=== PATIENT | male | born 1970 | race Two or more races ===

== ENCOUNTER 2019-11-22 17:44 | Inpatient (IN) | payer MEDICAID ==
[~2019-11-22] VITALS: Ht 182.9 cm; Wt 133.8 kg
[2019-11-22 19:20] LABS: CARBON DIOXIDE 26 mmol/L (22-29); CHLORIDE 99 mmol/L (98-107); POTASSIUM 3.4 mmol/L (3.5-5.1); SODIUM SERUM 141 mmol/L (136-145)
[2019-11-22 19:21] LABS: ANION GAP 16 mmol/L (8-16); CALCIUM, TOTAL 9.3 mg/dL (8.8-10.5); CREATININE 0.94 mg/dL (0.60-1.30); GLOMERULAR FILTR. RATE CALC > 60 mL/min (>60); GLUCOSE,RANDOM 185 mg/dL (70-110); UREA NITROGEN, BLOOD 9 mg/dL (7-18)
[2019-11-22 19:23] LABS: BASOPHILS % (AUTO) 0.4 % (0.0-2.0); EOSINOPHILS % (AUTO) 0.2 % (1.0-6.0); HEMATOCRIT 46.1 % (41-53); HEMOGLOBIN 16.4 g/dL (13.5-17.5); LYMPHOCYTES # (AUTO) 1.6 K/uL (1.0-4.8); LYMPHOCYTES % (AUTO) 15.6 % (22.0-44.0); MEAN CORPUSCULAR HEMOGLOBIN 32.9 pg (26.0-34.0); MEAN CORPUSCULAR HGB CONC 35.5 G/dL (31.0-37.0); MEAN CORPUSCULAR VOLUME 93 fL (80-100); MONOCYTES # (AUTO) 1.3 K/uL (0.1-1.0); MONOCYTES % (AUTO) 12.9 % (2.0-9.0); NEUTROPHILS # (AUTO) 7.1 K/uL (1.8-7.7); NEUTROPHILS % (AUTO) 70.9 % (40.0-70.0); PLATELET COUNT (AUTO) 315 K/uL (150-450); RED BLOOD CELL COUNT(AUTO) 4.98 MIL/uL (4.50-5.90); RED CELL DISTRIBUTION WIDTH 12.5 % (11.5-14.5)
[2019-11-22 19:26] LABS: ALANINE AMINOTRANSFERASE 35 U/L (12-78); ALBUMIN 4.6 g/dL (3.4-5.0); ALKALINE PHOSPHATASE 47 U/L (46-116); ASPARTATE AMINOTRANSFERASE 25 U/L (15-37); BILIRUBIN,TOTAL 0.9 mg/dL (0.1-1.0)
[2019-11-22 22:15] VITALS: BP 150/97
[2019-11-22] MEDS ORDERED: GuaiFENesin/D-METHORPHAN [SUGAR-FREE] 200-20MG/10 ML SYRUP UDCUP PO PRN (22:15)
[2019-11-22] MEDS ORDERED: DOCUSATE SODIUM 100 MG CAPSULE PO PRN (22:15)
[2019-11-22] MEDS ORDERED: MAG HYDROX/AL HYDROX/SIMETH ES 30 ML SUSPENSION UDCUP PO PRN (22:15)
[2019-11-22] MEDS ORDERED: ONDANSETRON HCL 4 MG TABLET PO PRN (22:15)
[2019-11-22] MEDS ORDERED: PETROLATUM,WHITE 28 GM JELLY TP PRN (22:15)
[2019-11-22] MEDS ORDERED: MAGNESIUM HYDROXIDE SUSPENSION 30 ML UDCUP PO PRN (22:15)
[2019-11-22] MEDS ORDERED: ALBUTEROL SULFATE HFA 90 MCG/PUFF 8 GM INHALER IH PRN (22:15)
[2019-11-22] MEDS ORDERED: ACETAMINOPHEN 325 MG TABLET PO PRN (22:15)
[2019-11-22] MEDS ORDERED: NICOTINE 14 MG/24 HOUR PATCH TD PRN (22:15)
[2019-11-22] MEDS ORDERED: IBUPROFEN 400 MG TABLET PO PRN (22:15)
[2019-11-22] MEDS ORDERED: LOPERAMIDE HCL 2 MG CAPSULE PO PRN (22:15)
[2019-11-22] MEDS ORDERED: POTASSIUM CHLORIDE 20 MEQ ER TABLET PO ONE (22:15)
[2019-11-22] MEDS ORDERED: CloNIDine HCL 0.1 MG TABLET PO PRN (22:15)
[2019-11-22] MEDS ORDERED: DEXTROSE 50%-WATER 25 GM/50 ML SYRINGE IVP PRN (22:30)
[2019-11-23] VITALS: BP 140/89
[2019-11-23] MEDS: ZOLPIDEM TARTRATE 10 MG TABLET PO PRN ×2 (01:10→21:00)
[2019-11-23] MEDS: HALOPERIDOL 5 MG TABLET PO PRN (01:10)
[2019-11-23] MEDS: LORazepam 2 MG TABLET PO PRN (01:11)
[2019-11-23 02:32] VITALS: BP 101/69
[2019-11-23 05:35] LABS: GLUCOMETER DEV NAME(LOC) 3E.I 2; GLUCOSE,POINT OF CARE 148 MG/DL (70-110)
[2019-11-23] MEDS: INSULIN LISPRO 100 UNITS/ML SQ PRN ×3 (06:54→21:18)
[2019-11-23 07:21] LABS: BASOPHILS % (AUTO) 0.3 % (0.0-2.0); EOSINOPHILS % (AUTO) 1.1 % (1.0-6.0); HEMATOCRIT 45.8 % (41-53); LYMPHOCYTES # (AUTO) 2.9 K/uL (1.0-4.8); LYMPHOCYTES % (AUTO) 28.3 % (22.0-44.0); MEAN CORPUSCULAR HEMOGLOBIN 32.6 pg (26.0-34.0); MEAN CORPUSCULAR VOLUME 93 fL (80-100); MONOCYTES # (AUTO) 1.5 K/uL (0.1-1.0); MONOCYTES % (AUTO) 14.5 % (2.0-9.0); NEUTROPHILS # (AUTO) 5.8 K/uL (1.8-7.7); NEUTROPHILS % (AUTO) 55.8 % (40.0-70.0); PLATELET COUNT (AUTO) 297 K/uL (150-450); RED BLOOD CELL COUNT(AUTO) 4.92 MIL/uL (4.50-5.90); RED CELL DISTRIBUTION WIDTH 12.6 % (11.5-14.5)
[2019-11-23 07:44] LABS: HEMOGLOBIN A1C 6.1 % (3.8-5.6)
[2019-11-23 08:00] LABS: ALANINE AMINOTRANSFERASE 35 U/L (12-78); ALBUMIN 3.9 g/dL (3.4-5.0); ALKALINE PHOSPHATASE 36 U/L (46-116); ANION GAP 12 mmol/L (8-16); ASPARTATE AMINOTRANSFERASE 23 U/L (15-37); CARBON DIOXIDE 27 mmol/L (22-29); CHLORIDE 103 mmol/L (98-107); CHOL/HDL RATIO 4.9 (4.2-7.3); CHOLESTEROL 122 mg/dL (131-200); CREATININE 0.76 mg/dL (0.60-1.30); GLOMERULAR FILTR. RATE CALC > 60 mL/min (>60); GLUCOSE,RANDOM 157 mg/dL (70-110); HDL CHOLESTEROL 25 mg/dL (40-60); LDL CHOL (CALC.) 72 mg/dL (0-130); POTASSIUM 3.2 mmol/L (3.5-5.1); SODIUM SERUM 142 mmol/L (136-145); TOTAL PROTEIN, SERUM 7.2 g/dL (6.4-8.2); TRIGLYCERIDES 124 mg/dL (15-150); UREA NITROGEN, BLOOD 12 mg/dL (7-18)
[2019-11-23 08:33] VITALS: BP 142/92
[2019-11-23 08:38] LABS: THYROID STIMULATING HORMONE 1.04 uIU/mL (0.36-3.74)
[2019-11-23 11:01] LABS: GLUCOMETER DEV NAME(LOC) 3E.I 2; GLUCOSE,POINT OF CARE 200 MG/DL (70-110)
[2019-11-23] MEDS: OLANZapine 5 MG TABLET PO SCH ×2 (12:13→20:20)
[2019-11-23] MEDS ORDERED: POTASSIUM CHLORIDE 10% 40 MEQ/30 ML LIQUID UDCUP PO ONE (15:45)
[2019-11-23 16:40] VITALS: BP 125/68
[2019-11-23 21:29] LABS: GLUCOMETER DEV NAME(LOC) 3E.I 2; GLUCOSE,POINT OF CARE 252 MG/DL (70-110)
[2019-11-24 05:42] LABS: GLUCOMETER DEV NAME(LOC) 3E.I 2; GLUCOSE,POINT OF CARE 147 MG/DL (70-110)
[2019-11-24] MEDS: INSULIN LISPRO 100 UNITS/ML SQ PRN ×4 (06:40→21:11)
[2019-11-24] MEDS: OLANZapine 5 MG TABLET PO SCH ×2 (08:08→20:08)
[2019-11-24 08:53] VITALS: BP 163/96
[2019-11-24 11:03] LABS: GLUCOMETER DEV NAME(LOC) 3E.I 2; GLUCOSE,POINT OF CARE 277 MG/DL (70-110)
[2019-11-24] MEDS: MetFORMIN HCL 500 MG TABLET PO SCH (17:07)
[2019-11-24 17:11] VITALS: BP 153/100
[2019-11-24 17:38] LABS: GLUCOMETER DEV NAME(LOC) 3E.I 2; GLUCOSE,POINT OF CARE 215 MG/DL (70-110)
[2019-11-24] MEDS: ZOLPIDEM TARTRATE 10 MG TABLET PO PRN (21:14)
[2019-11-24 21:26] LABS: GLUCOMETER DEV NAME(LOC) 3E.I 2; GLUCOSE,POINT OF CARE 168 MG/DL (70-110)
[2019-11-25] MEDS: HALOPERIDOL 5 MG TABLET PO PRN (02:37)
[2019-11-25 03:50] VITALS: BP 155/98
[2019-11-25 05:59] LABS: GLUCOMETER DEV NAME(LOC) 3E.I 2; GLUCOSE,POINT OF CARE 190 MG/DL (70-110)
[2019-11-25] MEDS: MetFORMIN HCL 500 MG TABLET PO SCH ×2 (06:47→16:30)
[2019-11-25] MEDS: INSULIN LISPRO 100 UNITS/ML SQ PRN ×4 (06:50→20:50)
[2019-11-25] MEDS: OLANZapine 5 MG TABLET PO SCH ×2 (08:55→20:29)
[2019-11-25 09:57] VITALS: BP 150/92
[2019-11-25 10:38] LABS: GLUCOMETER DEV NAME(LOC) 3E.I 2; GLUCOSE,POINT OF CARE 232 MG/DL (70-110)
[2019-11-25] MEDS: LORazepam 2 MG TABLET PO PRN (14:33)
[2019-11-25 17:00] VITALS: BP 147/95
[2019-11-25] MEDS: ZOLPIDEM TARTRATE 10 MG TABLET PO PRN (23:04)
[2019-11-26 05:34] LABS: GLUCOMETER DEV NAME(LOC) 3E.I 2; GLUCOSE,POINT OF CARE 165 MG/DL (70-110)
[2019-11-26] MEDS: MetFORMIN HCL 500 MG TABLET PO SCH (06:44)
[2019-11-26] MEDS: INSULIN LISPRO 100 UNITS/ML SQ PRN ×2 (06:45→12:22)
[2019-11-26] MEDS: OLANZapine 5 MG TABLET PO SCH (08:16)
[2019-11-26 08:30] VITALS: BP 152/83
[2019-11-26] MEDS ORDERED: FLUTICASONE PROPIONATE 50 MCG/SPRAY 16 GM NASAL SPRAY NASAL PRN (10:00)
[2019-11-26 11:21] LABS: GLUCOMETER DEV NAME(LOC) 3E.I 2; GLUCOSE,POINT OF CARE 209 MG/DL (70-110)
[2019-11-26] MEDS ORDERED: OLAN5TAB27 PO (13:30)
[2019-11-26] MEDS ORDERED: METF-960 PO (14:38)
[2019-11-26] MEDS ORDERED: HYDR28.35 TP (14:38)
[2019-11-26] MEDS ORDERED: HYDROCORTISONE 2.5% 30 GM CREAM TP SCH (17:00)
== END 2019-11-26 16:30 | disposition home or self-care (01) | DRG 885 ==
LOC: EMS 17:48 → 3EI 20:51
DX: F31.5 Bipolar disorder, current episode depressed, severe, with psychotic features (principal); E11.9 Type 2 diabetes mellitus without complications; I10 Essential (primary) hypertension; E87.6 Hypokalemia; F10.10 Alcohol abuse, uncomplicated; Z87.891 Personal history of nicotine dependence; Y90.9 Presence of alcohol in blood, level not specified
CPT/HCPCS: 70450; 83036; 84132; 84443; G0480

== ENCOUNTER 2020-01-09 20:02 | Emergency (ER) | payer MEDICAID ==
[~2020-01-09] VITALS: Ht 182.9 cm; Wt 154.6 kg
[~2020-01-09 20:02] MED LIST: HYDR28.35 TP; METF-960 PO; OLAN5TAB27 PO
[2020-01-09 21:08] LABS: BASOPHILS % (AUTO) 0.7 % (0.0-2.0); EOSINOPHILS % (AUTO) 5.1 % (1.0-6.0); HEMATOCRIT 43.6 % (41-53); HEMOGLOBIN 14.9 g/dL (13.5-17.5); LYMPHOCYTES # (AUTO) 2.8 K/uL (1.0-4.8); LYMPHOCYTES % (AUTO) 29.2 % (22.0-44.0); MEAN CORPUSCULAR HEMOGLOBIN 32.9 pg (26.0-34.0); MEAN CORPUSCULAR HGB CONC 34.2 G/dL (31.0-37.0); MEAN CORPUSCULAR VOLUME 96 fL (80-100); MONOCYTES # (AUTO) 0.8 K/uL (0.1-1.0); MONOCYTES % (AUTO) 8.5 % (2.0-9.0); NEUTROPHILS # (AUTO) 5.4 K/uL (1.8-7.7); NEUTROPHILS % (AUTO) 56.5 % (40.0-70.0); PLATELET COUNT (AUTO) 305 K/uL (150-450); RED BLOOD CELL COUNT(AUTO) 4.54 MIL/uL (4.50-5.90); RED CELL DISTRIBUTION WIDTH 13.1 % (11.5-14.5)
[2020-01-09 21:18] LABS: ANION GAP 8 mmol/L (8-16); CALCIUM, TOTAL 8.4 mg/dL (8.8-10.5); CARBON DIOXIDE 28 mmol/L (22-29); CHLORIDE 104 mmol/L (98-107); CREATININE 0.69 mg/dL (0.60-1.30); GLOMERULAR FILTR. RATE CALC > 60 mL/min (>60); GLUCOSE,RANDOM 179 mg/dL (70-110); SODIUM SERUM 140 mmol/L (136-145); UREA NITROGEN, BLOOD 9 mg/dL (7-18)
[2020-01-09 21:24] LABS: ALANINE AMINOTRANSFERASE 19 U/L (12-78); ALBUMIN 3.6 g/dL (3.4-5.0); ALKALINE PHOSPHATASE 38 U/L (46-116); ASPARTATE AMINOTRANSFERASE 13 U/L (15-37); BILIRUBIN,TOTAL 0.5 mg/dL (0.1-1.0); TOTAL PROTEIN, SERUM 7.1 g/dL (6.4-8.2)
[2020-01-09] MEDS ORDERED: LORazepam 1 MG TABLET PO ONE (21:45)
[2020-01-09] MEDS ORDERED: HALOPERIDOL 5 MG TABLET PO ONE (21:45)
[2020-01-09 22:20] LABS: AMPHET/METH SCREEN,URINE NEGATIVE (NEGATIVE); BARBITURATE SCREEN, URINE NEGATIVE (NEGATIVE); BENZODIAZEPINES SCREEN,URINE NEGATIVE (NEGATIVE); CANNABINOID SCREEN,URINE POSITIVE (NEGATIVE); COCAINE SCREEN,URINE NEGATIVE (NEGATIVE); METHADONE SCREEN, URINE NEGATIVE (NEGATIVE); OPIATE SCREEN,URINE NEGATIVE (NEGATIVE)
[2020-01-09 22:21] LABS: PHENCYCLIDINE SCREEN,URINE NEGATIVE (NEGATIVE)
[2020-01-09 22:45] VITALS: BP 129/78
== END 2020-01-09 23:00 | disposition home or self-care (01) ==
LOC: EMS 20:02 → EDBD 20:02 → EMS 23:00
DX: F31.9 Bipolar disorder, unspecified (principal); E11.9 Type 2 diabetes mellitus without complications; I10 Essential (primary) hypertension; F17.210 Nicotine dependence, cigarettes, uncomplicated; F12.90 Cannabis use, unspecified, uncomplicated; Z79.84 Long term (current) use of oral hypoglycemic drugs
CPT/HCPCS: 36415; 80053; 80307; 85025; 99284; G0480

== ENCOUNTER 2020-09-26 22:40 | Emergency (ER) | payer MEDICAID ==
[~2020-09-26] VITALS: Ht 182.9 cm; Wt 163.6 kg
[2020-09-26] MEDS ORDERED: PARO-38 PO (22:51)
[2020-09-26] MEDS ORDERED: LOSA50TA37 PO (22:51)
[2020-09-26 23:59] LABS: BASOPHILS % (AUTO) 0.7 % (0.0-2.0); EOSINOPHILS % (AUTO) 0.3 % (1.0-6.0); HEMOGLOBIN 17.4 g/dL (13.5-17.5); LYMPHOCYTES # (AUTO) 2.4 K/uL (1.0-4.8); LYMPHOCYTES % (AUTO) 15.8 % (22.0-44.0); MEAN CORPUSCULAR HEMOGLOBIN 33.4 pg (26.0-34.0); MEAN CORPUSCULAR HGB CONC 34.8 G/dL (31.0-37.0); MEAN CORPUSCULAR VOLUME 96 fL (80-100); MONOCYTES # (AUTO) 1.5 K/uL (0.1-1.0); NEUTROPHILS # (AUTO) 11.1 K/uL (1.8-7.7); NEUTROPHILS % (AUTO) 73.2 % (40.0-70.0); PLATELET COUNT (AUTO) 339 K/uL (150-450); RED CELL DISTRIBUTION WIDTH 12.8 % (11.5-14.5)
[2020-09-27 00:12] LABS: ANION GAP 18 mmol/L (8-16); CALCIUM, TOTAL 8.8 mg/dL (8.8-10.5); CARBON DIOXIDE 20 mmol/L (22-29); CHLORIDE 98 mmol/L (98-107); CREATININE 0.88 mg/dL (0.60-1.30); GLOMERULAR FILTR. RATE CALC > 60 mL/min (>60); GLUCOSE,RANDOM 263 mg/dL (70-110); POTASSIUM 3.5 mmol/L (3.5-5.1); SODIUM SERUM 136 mmol/L (136-145); UREA NITROGEN, BLOOD 10 mg/dL (7-18)
[2020-09-27 00:18] LABS: ALANINE AMINOTRANSFERASE 45 U/L (12-78); ALBUMIN 4.1 g/dL (3.4-5.0); ALKALINE PHOSPHATASE 56 U/L (46-116); ASPARTATE AMINOTRANSFERASE 19 U/L (15-37); BILIRUBIN,TOTAL 0.8 mg/dL (0.1-1.0); TOTAL PROTEIN, SERUM 8.2 g/dL (6.4-8.2)
[2020-09-27] MEDS ORDERED: LORazepam 1 MG TABLET PO ONE (00:45)
[2020-09-27] MEDS ORDERED: OLANZapine 5 MG TABLET PO ONE ×2 (00:45)
[2020-09-27 01:45] VITALS: BP 140/95
== END 2020-09-27 02:19 | disposition home or self-care (01) ==
LOC: EMS 22:40
DX: F31.9 Bipolar disorder, unspecified (principal)
CPT/HCPCS: 36415; 80053; 85025; 99284; G0480

== ENCOUNTER 2020-09-30 11:59 | Inpatient (IN) | payer MEDICAID ==
[~2020-09-30] VITALS: Ht 185.4 cm; Wt 142.0 kg
[~2020-09-30 11:59] MED LIST changes: +LOSA50TA37 PO; +PARO-38 PO
[2020-09-30] MEDS ORDERED: INSULIN REGULAR, HUMAN 100 UNITS/ML IVP ONE (13:00)
[2020-09-30] MEDS ORDERED: SODIUM CHLORIDE 0.9% 1,000 ML IV ONE (13:00)
[2020-09-30 13:16] LABS: BASOPHILS % (AUTO) 0.4 % (0.0-2.0); EOSINOPHILS % (AUTO) 0.1 % (1.0-6.0); HEMATOCRIT 51.1 % (41-53); HEMOGLOBIN 17.6 g/dL (13.5-17.5); LYMPHOCYTES # (AUTO) 2.1 K/uL (1.0-4.8); LYMPHOCYTES % (AUTO) 12.5 % (22.0-44.0); MEAN CORPUSCULAR HEMOGLOBIN 33.1 pg (26.0-34.0); MEAN CORPUSCULAR HGB CONC 34.3 G/dL (31.0-37.0); MEAN CORPUSCULAR VOLUME 96 fL (80-100); MONOCYTES # (AUTO) 2.3 K/uL (0.1-1.0); MONOCYTES % (AUTO) 13.8 % (2.0-9.0); NEUTROPHILS # (AUTO) 12.1 K/uL (1.8-7.7); NEUTROPHILS % (AUTO) 73.2 % (40.0-70.0); PLATELET COUNT (AUTO) 373 K/uL (150-450); RED CELL DISTRIBUTION WIDTH 13.1 % (11.5-14.5)
[2020-09-30] MEDS ORDERED: LORazepam 2 MG/ML VIAL IVP ONE (13:30)
[2020-09-30] MEDS ORDERED: LORazepam 2 MG/ML VIAL ONE (13:30)
[2020-09-30 13:31] LABS: ANION GAP 19 mmol/L (8-16); CALCIUM, TOTAL 9.5 mg/dL (8.8-10.5); CARBON DIOXIDE 19 mmol/L (22-29); CHLORIDE 99 mmol/L (98-107); CREATININE 0.96 mg/dL (0.60-1.30); GLOMERULAR FILTR. RATE CALC > 60 mL/min (>60); GLUCOSE,RANDOM 395 mg/dL (70-110); POTASSIUM 3.4 mmol/L (3.5-5.1); SODIUM SERUM 137 mmol/L (136-145); UREA NITROGEN, BLOOD 13 mg/dL (7-18)
[2020-09-30 13:37] LABS: ALANINE AMINOTRANSFERASE 39 U/L (12-78); ALBUMIN 4.1 g/dL (3.4-5.0); ALKALINE PHOSPHATASE 58 U/L (46-116); ASPARTATE AMINOTRANSFERASE 26 U/L (15-37); TOTAL PROTEIN, SERUM 7.9 g/dL (6.4-8.2)
[2020-09-30] MEDS ORDERED: SODIUM CHLORIDE 0.9% 500 ML IV ONE (14:15)
[2020-09-30] MEDS ORDERED: POTASSIUM CHLORIDE 20 MEQ ER TABLET PO ONE (14:30)
[2020-09-30 14:32] LABS: COVID AG,FIA SOURCE NASOPHARYNGEAL
[2020-09-30 14:34] LABS: GLUCOSE,POINT OF CARE 274 MG/DL (70-110)
[2020-09-30 16:30] LABS: GLUCOSE,POINT OF CARE 266 MG/DL (70-110)
[2020-09-30] MEDS ORDERED: MONT10TA32 PO (16:51)
[2020-09-30] MEDS ORDERED: INSU100I26 SQ (16:51)
[2020-09-30] MEDS ORDERED: GLIP10TA9 PO (16:51)
[2020-09-30] MEDS ORDERED: ATOR20TA65 PO (16:51)
[2020-09-30 17:06] LABS: APPEARANCE,URINE CLEAR (CLEAR); GLUCOSE, URINE (UA) >=1000 mg/dL (NEGATIVE); KETONES,URINE >=80 mg/dL (NEGATIVE); LEUKOCYTE ESTERASE ,URINE NEGATIVE (NEGATIVE); NITRATE,URINE NEGATIVE (NEGATIVE); OCCULT BLOOD,URINE TRACE (NEGATIVE); PH,URINE 5.5 (5.0-8.0); PROTEIN,URINE TRACE (NEGATIVE); UROBILINOGEN,URINE 0.2 mg/dL (<=1.0)
[2020-09-30 17:12] LABS: AMPHET/METH SCREEN,URINE NEGATIVE (NEGATIVE); BARBITURATE SCREEN, URINE NEGATIVE (NEGATIVE); BENZODIAZEPINES SCREEN,URINE NEGATIVE (NEGATIVE); CANNABINOID SCREEN,URINE POSITIVE (NEGATIVE); COCAINE SCREEN,URINE NEGATIVE (NEGATIVE); METHADONE SCREEN, URINE NEGATIVE (NEGATIVE); OPIATE SCREEN,URINE NEGATIVE (NEGATIVE)
[2020-09-30 17:13] LABS: PHENCYCLIDINE SCREEN,URINE NEGATIVE (NEGATIVE)
[2020-09-30 17:20] LABS: BILIRUBIN,URINE PRELIM. POSITIVE (NEGATIVE)
[2020-09-30 17:28] LABS: BACTERIA,URINE None Seen /HPF (None Seen); RBC,URINE 0-2 /HPF (0-2); SQUAMOUS EPITHELIAL CELL,UR Rare /LPF (None Seen); WBC,URINE 0-2 /HPF (0-5)
[2020-09-30 19:08] VITALS: BP 146/86
[2020-09-30] MEDS ORDERED: DEXTROSE 50%-WATER 25 GM/50 ML SYRINGE IVP PRN (19:30)
[2020-09-30] MEDS ORDERED: INFLUENZA VIRUS VACCINE QVS 2020-21 (6MO+)/PF 60 MCG/0.5 ML SYRINGE IM ONE (20:00)
[2020-09-30] MEDS ORDERED: PNEUMOCOCCAL VACCINE POLYVALENT 0.5 ML VIAL [PPSV23] IM ONE (20:00)
[2020-09-30 21:10] LABS: GLUCOMETER DEV NAME(LOC) 3E.I 2; GLUCOSE,POINT OF CARE 275 MG/DL (70-110)
[2020-10-01 00:15] VITALS: BP 154/82
[2020-10-01] MEDS: HALOPERIDOL 5 MG TABLET PO PRN ×2 (00:21→22:58)
[2020-10-01] MEDS: LORazepam 2 MG TABLET PO PRN (00:22)
[2020-10-01] MEDS: ZOLPIDEM TARTRATE 10 MG TABLET PO PRN (01:14)
[2020-10-01 05:43] LABS: GLUCOMETER DEV NAME(LOC) 3E.I 2; GLUCOSE,POINT OF CARE 232 MG/DL (70-110)
[2020-10-01] MEDS: INSULIN LISPRO 100 UNITS/ML SQ PRN ×4 (07:00→21:21)
[2020-10-01] MEDS ORDERED: MetFORMIN HCL 500 MG TABLET PO SCH (07:30)
[2020-10-01 07:32] LABS: CHOL/HDL RATIO 4.2 (4.2-7.3); POTASSIUM 3.1 mmol/L (3.5-5.1)
[2020-10-01 09:31] VITALS: BP 147/85
[2020-10-01 11:18] LABS: GLUCOMETER DEV NAME(LOC) 3E.I 2; GLUCOSE,POINT OF CARE 283 MG/DL (70-110)
[2020-10-01] MEDS ORDERED: IBUPROFEN 600 MG TABLET PO PRN (16:15)
[2020-10-01] MEDS ORDERED: MAGNESIUM HYDROXIDE SUSPENSION 30 ML UDCUP PO PRN (16:15)
[2020-10-01] MEDS ORDERED: BACITRACIN 28 GM OINTMENT TP PRN (16:15)
[2020-10-01] MEDS ORDERED: ALBUTEROL SULFATE HFA 90 MCG/PUFF 8 GM INHALER IH PRN (16:15)
[2020-10-01] MEDS ORDERED: ACETAMINOPHEN 325 MG TABLET PO PRN (16:15)
[2020-10-01] MEDS ORDERED: MAG HYDROX/AL HYDROX/SIMETH ES 30 ML SUSPENSION UDCUP PO PRN (16:15)
[2020-10-01] MEDS ORDERED: BENZOCAINE/MENTHOL LOZENGE PO PRN (16:15)
[2020-10-01] MEDS ORDERED: LOPERAMIDE HCL 2 MG CAPSULE PO PRN (16:15)
[2020-10-01] MEDS ORDERED: OMEPRAZOLE 20 MG CAPSULE PO PRN (16:15)
[2020-10-01] MEDS ORDERED: PETROLATUM,WHITE 28 GM JELLY TP PRN (16:15)
[2020-10-01] MEDS ORDERED: DOCUSATE SODIUM 100 MG CAPSULE PO PRN (16:15)
[2020-10-01] MEDS ORDERED: CloNIDine HCL 0.1 MG TABLET PO PRN (16:15)
[2020-10-01] MEDS ORDERED: ONDANSETRON HCL 4 MG TABLET PO PRN (16:15)
[2020-10-01] MEDS ORDERED: POTASSIUM CHLORIDE 20 MEQ ER TABLET PO ONE (16:15)
[2020-10-01] MEDS: MetFORMIN HCL 500 MG TABLET PO SCH (16:37)
[2020-10-01 16:58] LABS: GLUCOMETER DEV NAME(LOC) 3E.I 2; GLUCOSE,POINT OF CARE 365 MG/DL (70-110)
[2020-10-01] MEDS: METOPROLOL TARTRATE 25 MG TABLET PO SCH (17:05)
[2020-10-01] MEDS: OLANZapine 10 MG TABLET PO SCH (20:24)
[2020-10-01] MEDS: ATORVASTATIN CALCIUM 20 MG TABLET PO SCH (20:24)
[2020-10-01 21:15] LABS: GLUCOMETER DEV NAME(LOC) 3E.I 2; GLUCOSE,POINT OF CARE 281 MG/DL (70-110)
[2020-10-02 05:49] LABS: GLUCOMETER DEV NAME(LOC) 3E.I 2; GLUCOSE,POINT OF CARE 111 MG/DL (70-110)
[2020-10-02 06:36] LABS: BASOPHILS % (AUTO) 0.7 % (0.0-2.0); EOSINOPHILS % (AUTO) 3.1 % (1.0-6.0); HEMATOCRIT 45.1 % (41-53); HEMOGLOBIN 15.7 g/dL (13.5-17.5); LYMPHOCYTES # (AUTO) 3.6 K/uL (1.0-4.8); LYMPHOCYTES % (AUTO) 48.7 % (22.0-44.0); MEAN CORPUSCULAR HEMOGLOBIN 33.2 pg (26.0-34.0); MEAN CORPUSCULAR HGB CONC 34.8 G/dL (31.0-37.0); MEAN CORPUSCULAR VOLUME 96 fL (80-100); MONOCYTES # (AUTO) 0.9 K/uL (0.1-1.0); MONOCYTES % (AUTO) 12.2 % (2.0-9.0); NEUTROPHILS # (AUTO) 2.6 K/uL (1.8-7.7); NEUTROPHILS % (AUTO) 35.3 % (40.0-70.0); PLATELET COUNT (AUTO) 258 K/uL (150-450); RED BLOOD CELL COUNT(AUTO) 4.72 MIL/uL (4.50-5.90); RED CELL DISTRIBUTION WIDTH 12.8 % (11.5-14.5)
[2020-10-02] MEDS: INSULIN LISPRO 100 UNITS/ML SQ PRN ×4 (06:46→21:54)
[2020-10-02] MEDS: MetFORMIN HCL 500 MG TABLET PO SCH ×2 (06:46→16:34)
[2020-10-02 06:54] LABS: ALANINE AMINOTRANSFERASE 38 U/L (12-78); ALBUMIN 3.5 g/dL (3.4-5.0); ALKALINE PHOSPHATASE 50 U/L (46-116); ANION GAP 12 mmol/L (8-16); ASPARTATE AMINOTRANSFERASE 30 U/L (15-37); BILIRUBIN,TOTAL 0.8 mg/dL (0.1-1.0); CALCIUM, TOTAL 9.2 mg/dL (8.8-10.5); CARBON DIOXIDE 24 mmol/L (22-29); CHLORIDE 101 mmol/L (98-107); CREATININE 0.75 mg/dL (0.60-1.30); GLOMERULAR FILTR. RATE CALC > 60 mL/min (>60); GLUCOSE,RANDOM 240 mg/dL (70-110); POTASSIUM 3.2 mmol/L (3.5-5.1); SODIUM SERUM 137 mmol/L (136-145); TOTAL PROTEIN, SERUM 6.5 g/dL (6.4-8.2); UREA NITROGEN, BLOOD 15 mg/dL (7-18)
[2020-10-02 07:13] LABS: HEMOGLOBIN A1C 8.7 % (3.8-5.6)
[2020-10-02] MEDS: METOPROLOL TARTRATE 25 MG TABLET PO SCH ×2 (09:04→16:33)
[2020-10-02] MEDS: LORazepam 2 MG TABLET PO PRN (09:04)
[2020-10-02 10:06] VITALS: BP 151/99
[2020-10-02 11:41] LABS: GLUCOMETER DEV NAME(LOC) 3E.I 2; GLUCOSE,POINT OF CARE 326 MG/DL (70-110)
[2020-10-02 16:00] VITALS: BP 142/86
[2020-10-02 17:03] LABS: GLUCOMETER DEV NAME(LOC) 3E.I 2; GLUCOSE,POINT OF CARE 262 MG/DL (70-110)
[2020-10-02] MEDS: ATORVASTATIN CALCIUM 20 MG TABLET PO SCH (20:15)
[2020-10-02] MEDS: OLANZapine 10 MG TABLET PO SCH (20:15)
[2020-10-02 20:42] LABS: GLUCOMETER DEV NAME(LOC) 3E.I 2; GLUCOSE,POINT OF CARE 310 MG/DL (70-110)
[2020-10-03 00:05] VITALS: BP 155/98
[2020-10-03] MEDS: LORazepam 2 MG TABLET PO PRN (00:10)
[2020-10-03] MEDS: ZOLPIDEM TARTRATE 10 MG TABLET PO PRN (00:10)
[2020-10-03 05:26] LABS: GLUCOMETER DEV NAME(LOC) 3E.I 2; GLUCOSE,POINT OF CARE 224 MG/DL (70-110)
[2020-10-03] MEDS: MetFORMIN HCL 500 MG TABLET PO SCH ×2 (07:03→17:33)
[2020-10-03] MEDS: INSULIN LISPRO 100 UNITS/ML SQ PRN ×3 (07:05→21:43)
[2020-10-03 08:00] VITALS: BP 155/95
[2020-10-03] MEDS: METOPROLOL TARTRATE 25 MG TABLET PO SCH (09:30)
[2020-10-03 12:09] LABS: GLUCOMETER DEV NAME(LOC) 3E.I 2; GLUCOSE,POINT OF CARE 292 MG/DL (70-110)
[2020-10-03 16:00] VITALS: BP 142/86
[2020-10-03 17:25] LABS: GLUCOMETER DEV NAME(LOC) 3E.I 2; GLUCOSE,POINT OF CARE 298 MG/DL (70-110)
[2020-10-03] MEDS: METOPROLOL TARTRATE 50 MG TABLET PO SCH (17:32)
[2020-10-03] MEDS: OLANZapine 10 MG TABLET PO SCH (21:41)
[2020-10-03] MEDS: ATORVASTATIN CALCIUM 20 MG TABLET PO SCH (21:42)
[2020-10-04] MEDS: ZOLPIDEM TARTRATE 10 MG TABLET PO PRN (00:02)
[2020-10-04] MEDS: LORazepam 2 MG TABLET PO PRN (00:02)
[2020-10-04 00:04] VITALS: BP 156/95
[2020-10-04 05:24] LABS: GLUCOMETER DEV NAME(LOC) 3E.I 2; GLUCOSE,POINT OF CARE 225 MG/DL (70-110)
[2020-10-04] MEDS: MetFORMIN HCL 500 MG TABLET PO SCH ×2 (06:45→17:11)
[2020-10-04] MEDS: INSULIN LISPRO 100 UNITS/ML SQ PRN ×4 (06:46→21:02)
[2020-10-04] MEDS: METOPROLOL TARTRATE 50 MG TABLET PO SCH ×2 (08:36→17:11)
[2020-10-04 09:00] VITALS: BP 154/88
[2020-10-04] MEDS ORDERED: POTASSIUM CHLORIDE 20 MEQ ER TABLET PO ONE (09:45)
[2020-10-04 11:59] LABS: GLUCOMETER DEV NAME(LOC) 3E.I 2; GLUCOSE,POINT OF CARE 301 MG/DL (70-110)
[2020-10-04 16:44] LABS: GLUCOMETER DEV NAME(LOC) 3E.I 2; GLUCOSE,POINT OF CARE 298 MG/DL (70-110)
[2020-10-04 17:44] VITALS: BP 151/93
[2020-10-04] MEDS: OLANZapine 10 MG TABLET PO SCH (20:22)
[2020-10-04] MEDS: ATORVASTATIN CALCIUM 20 MG TABLET PO SCH (20:22)
[2020-10-04 20:33] LABS: GLUCOMETER DEV NAME(LOC) 3E.I 2; GLUCOSE,POINT OF CARE 293 MG/DL (70-110)
[2020-10-05 00:31] VITALS: BP 146/86
[2020-10-05] MEDS: ZOLPIDEM TARTRATE 10 MG TABLET PO PRN (00:36)
[2020-10-05 05:35] LABS: GLUCOMETER DEV NAME(LOC) 3E.I 2; GLUCOSE,POINT OF CARE 212 MG/DL (70-110)
[2020-10-05 08:30] VITALS: BP 137/80
[2020-10-05] MEDS: MetFORMIN HCL 500 MG TABLET PO SCH ×2 (09:14→17:16)
[2020-10-05] MEDS: METOPROLOL TARTRATE 50 MG TABLET PO SCH ×2 (09:15→16:52)
[2020-10-05] MEDS: LORazepam 2 MG TABLET PO PRN (09:26)
[2020-10-05] MEDS: INSULIN LISPRO 100 UNITS/ML SQ PRN ×3 (09:52→21:27)
[2020-10-05 11:36] LABS: GLUCOMETER DEV NAME(LOC) 3E.I 2; GLUCOSE,POINT OF CARE 254 MG/DL (70-110)
[2020-10-05] MEDS: GLYCERIN/WITCH HAZEL LEAF 40 PADS JAR TP PRN (13:28)
[2020-10-05 16:00] VITALS: BP 143/86
[2020-10-05 17:14] LABS: GLUCOMETER DEV NAME(LOC) 3E.I 2; GLUCOSE,POINT OF CARE 300 MG/DL (70-110)
[2020-10-05] MEDS: OLANZapine 10 MG TABLET PO SCH (20:30)
[2020-10-05] MEDS: ATORVASTATIN CALCIUM 20 MG TABLET PO SCH (20:30)
[2020-10-05 21:08] LABS: GLUCOMETER DEV NAME(LOC) 3E.I 2; GLUCOSE,POINT OF CARE 280 MG/DL (70-110)
[2020-10-06 01:10] VITALS: BP 137/88
[2020-10-06] MEDS: ZOLPIDEM TARTRATE 10 MG TABLET PO PRN (01:15)
[2020-10-06 06:07] LABS: GLUCOMETER DEV NAME(LOC) 3E.I 2; GLUCOSE,POINT OF CARE 252 MG/DL (70-110)
[2020-10-06] MEDS: MetFORMIN HCL 500 MG TABLET PO SCH ×2 (07:06→16:42)
[2020-10-06] MEDS: INSULIN LISPRO 100 UNITS/ML SQ PRN ×3 (07:07→17:30)
[2020-10-06 08:38] VITALS: BP 137/94
[2020-10-06] MEDS: METOPROLOL TARTRATE 50 MG TABLET PO SCH ×2 (08:43→16:12)
[2020-10-06 09:11] LABS: COVID AG,FIA SOURCE NASOPHARYNGEAL
[2020-10-06 11:30] LABS: GLUCOMETER DEV NAME(LOC) 3E.I 2; GLUCOSE,POINT OF CARE 299 MG/DL (70-110)
[2020-10-06 16:52] LABS: GLUCOMETER DEV NAME(LOC) 3E.I 2; GLUCOSE,POINT OF CARE 277 MG/DL (70-110)
[2020-10-06 17:06] VITALS: BP 137/79
[2020-10-06] MEDS: ATORVASTATIN CALCIUM 20 MG TABLET PO SCH (20:05)
[2020-10-06] MEDS: OLANZapine 10 MG TABLET PO SCH (20:05)
[2020-10-06 20:48] LABS: GLUCOMETER DEV NAME(LOC) 3E.I 2; GLUCOSE,POINT OF CARE 258 MG/DL (70-110)
[2020-10-07] MEDS: ZOLPIDEM TARTRATE 10 MG TABLET PO PRN (01:05)
[2020-10-07] MEDS: LORazepam 2 MG TABLET PO PRN (01:05)
[2020-10-07 01:30] VITALS: BP 149/85
[2020-10-07 05:35] LABS: GLUCOMETER DEV NAME(LOC) 3E.I 2; GLUCOSE,POINT OF CARE 185 MG/DL (70-110)
[2020-10-07] MEDS: MetFORMIN HCL 500 MG TABLET PO SCH ×2 (06:47→16:48)
[2020-10-07] MEDS: INSULIN LISPRO 100 UNITS/ML SQ PRN ×5 (06:55→21:21)
[2020-10-07 08:17] VITALS: BP 136/84
[2020-10-07] MEDS: METOPROLOL TARTRATE 50 MG TABLET PO SCH ×2 (11:30→16:48)
[2020-10-07 11:33] LABS: GLUCOMETER DEV NAME(LOC) 3E.I 2; GLUCOSE,POINT OF CARE 270 MG/DL (70-110)
[2020-10-07 16:00] VITALS: BP 163/93
[2020-10-07 17:14] LABS: GLUCOMETER DEV NAME(LOC) 3E.I 2; GLUCOSE,POINT OF CARE 259 MG/DL (70-110)
[2020-10-07] MEDS: ATORVASTATIN CALCIUM 20 MG TABLET PO SCH (20:28)
[2020-10-07] MEDS: OLANZapine 10 MG TABLET PO SCH (20:28)
[2020-10-07 20:43] LABS: GLUCOMETER DEV NAME(LOC) 3E.I 2; GLUCOSE,POINT OF CARE 283 MG/DL (70-110)
[2020-10-08 00:45] VITALS: BP 146/80
[2020-10-08] MEDS: LORazepam 2 MG TABLET PO PRN (00:48)
[2020-10-08] MEDS: ZOLPIDEM TARTRATE 10 MG TABLET PO PRN (00:48)
[2020-10-08 05:32] LABS: GLUCOMETER DEV NAME(LOC) 3E.I 2; GLUCOSE,POINT OF CARE 175 MG/DL (70-110)
[2020-10-08] MEDS: MetFORMIN HCL 500 MG TABLET PO SCH ×2 (06:45→16:55)
[2020-10-08] MEDS: INSULIN LISPRO 100 UNITS/ML SQ PRN ×4 (06:47→21:24)
[2020-10-08 08:25] VITALS: BP 147/69
[2020-10-08] MEDS: METOPROLOL TARTRATE 50 MG TABLET PO SCH ×2 (08:34→16:55)
[2020-10-08 11:33] LABS: GLUCOMETER DEV NAME(LOC) 3E.I 2; GLUCOSE,POINT OF CARE 235 MG/DL (70-110)
[2020-10-08 16:32] VITALS: BP 150/92
[2020-10-08 17:19] LABS: GLUCOMETER DEV NAME(LOC) 3E.I 2; GLUCOSE,POINT OF CARE 220 MG/DL (70-110)
[2020-10-08] MEDS: OLANZapine 10 MG TABLET PO SCH (20:05)
[2020-10-08] MEDS: ATORVASTATIN CALCIUM 20 MG TABLET PO SCH (20:05)
[2020-10-08 21:19] LABS: GLUCOMETER DEV NAME(LOC) 3E.I 2; GLUCOSE,POINT OF CARE 240 MG/DL (70-110)
[2020-10-09] MEDS: LORazepam 2 MG TABLET PO PRN (05:17)
[2020-10-09 05:34] LABS: GLUCOMETER DEV NAME(LOC) 3E.I 2; GLUCOSE,POINT OF CARE 221 MG/DL (70-110)
[2020-10-09 05:47] VITALS: BP 146/83
[2020-10-09] MEDS: MetFORMIN HCL 500 MG TABLET PO SCH ×2 (06:54→16:33)
[2020-10-09] MEDS: INSULIN LISPRO 100 UNITS/ML SQ PRN ×4 (07:03→20:41)
[2020-10-09 08:29] VITALS: BP 107/57
[2020-10-09] MEDS: METOPROLOL TARTRATE 50 MG TABLET PO SCH ×2 (08:58→16:33)
[2020-10-09 11:57] LABS: GLUCOMETER DEV NAME(LOC) 3E.I 2; GLUCOSE,POINT OF CARE 190 MG/DL (70-110)
[2020-10-09 17:03] LABS: GLUCOMETER DEV NAME(LOC) 3E.I 2; GLUCOSE,POINT OF CARE 230 MG/DL (70-110)
[2020-10-09 20:29] LABS: GLUCOMETER DEV NAME(LOC) 3E.I 2; GLUCOSE,POINT OF CARE 234 MG/DL (70-110)
[2020-10-09] MEDS: OLANZapine 10 MG TABLET PO SCH (20:40)
[2020-10-09] MEDS: ATORVASTATIN CALCIUM 20 MG TABLET PO SCH (20:40)
[2020-10-09] MEDS: ZOLPIDEM TARTRATE 10 MG TABLET PO PRN (22:35)
[2020-10-09] MEDS: GLYCERIN/WITCH HAZEL LEAF 40 PADS JAR TP PRN (22:35)
[2020-10-10 05:37] LABS: GLUCOMETER DEV NAME(LOC) 3E.I 2; GLUCOSE,POINT OF CARE 182 MG/DL (70-110)
[2020-10-10 05:38] VITALS: BP 133/84
[2020-10-10] MEDS: MetFORMIN HCL 500 MG TABLET PO SCH (06:57)
[2020-10-10] MEDS: INSULIN LISPRO 100 UNITS/ML SQ PRN ×2 (06:58→11:36)
[2020-10-10] MEDS: METOPROLOL TARTRATE 50 MG TABLET PO SCH (08:54)
[2020-10-10 11:38] LABS: GLUCOMETER DEV NAME(LOC) 3E.I 2; GLUCOSE,POINT OF CARE 287 MG/DL (70-110)
[2020-10-10] MEDS ORDERED: OLAN10TA3 PO (11:54)
[2020-10-10] MEDS ORDERED: METO50 PO (11:54)
== END 2020-10-10 16:00 | disposition home or self-care (01) | DRG 750 ==
LOC: EMS 11:59 → 3EI 18:15
PROVIDERS: ADMIT Psychiatry & Neurology Psychiatry; ATTEND Psychiatry & Neurology Psychiatry
DX: F20.0 Paranoid schizophrenia (principal); E11.65 Type 2 diabetes mellitus with hyperglycemia; I10 Essential (primary) hypertension; F17.200 Nicotine dependence, unspecified, uncomplicated; E87.6 Hypokalemia; G47.00 Insomnia, unspecified; F12.10 Cannabis abuse, uncomplicated; E78.5 Hyperlipidemia, unspecified; E66.9 Obesity, unspecified; Z68.41 Body mass index [BMI] 40.0-44.9, adult; D72.829 Elevated white blood cell count, unspecified; Z20.822 Contact with and (suspected) exposure to COVID-19
CPT/HCPCS: 82948; 83036; 83735; 84100; 84132; 87426; 90686; 90732; 99285; G0480; J1815; J2060; J7030

== ENCOUNTER 2020-11-23 00:38 | Emergency (ER) | payer MEDICAID ==
[~2020-11-23] VITALS: Ht 182.9 cm; Wt 150.0 kg
[~2020-11-23 00:38] MED LIST changes: +ATOR20TA65 PO; -HYDR28.35 TP; -LOSA50TA37 PO; +METO50 PO; +OLAN10TA3 PO; -OLAN5TAB27 PO; -PARO-38 PO
[2020-11-23 01:21] LABS: GLUCOSE,POINT OF CARE 281 MG/DL (70-110)
[2020-11-23 02:15] LABS: BASOPHILS % (AUTO) 0.5 % (0.0-2.0); EOSINOPHILS % (AUTO) 1.2 % (1.0-6.0); HEMATOCRIT 43.7 % (41-53); HEMOGLOBIN 15.2 g/dL (13.5-17.5); LYMPHOCYTES # (AUTO) 2.8 K/uL (1.0-4.8); LYMPHOCYTES % (AUTO) 25.4 % (22.0-44.0); MEAN CORPUSCULAR HEMOGLOBIN 33.1 pg (26.0-34.0); MEAN CORPUSCULAR HGB CONC 34.7 G/dL (31.0-37.0); MEAN CORPUSCULAR VOLUME 95 fL (80-100); MONOCYTES # (AUTO) 1.4 K/uL (0.1-1.0); MONOCYTES % (AUTO) 12.6 % (2.0-9.0); NEUTROPHILS # (AUTO) 6.7 K/uL (1.8-7.7); NEUTROPHILS % (AUTO) 60.3 % (40.0-70.0); PLATELET COUNT (AUTO) 325 K/uL (150-450); RED BLOOD CELL COUNT(AUTO) 4.58 MIL/uL (4.50-5.90)
[2020-11-23 02:19] LABS: ANION GAP 9 mmol/L (8-16); CARBON DIOXIDE 29 mmol/L (22-29); CHLORIDE 100 mmol/L (98-107); CREATININE 0.93 mg/dL (0.60-1.30); GLOMERULAR FILTR. RATE CALC > 60 mL/min (>60); GLUCOSE,RANDOM 253 mg/dL (70-110); POTASSIUM 3.2 mmol/L (3.5-5.1); SODIUM SERUM 138 mmol/L (136-145); UREA NITROGEN, BLOOD 10 mg/dL (7-18)
[2020-11-23 02:25] LABS: ALANINE AMINOTRANSFERASE 36 U/L (12-78); ALBUMIN 3.6 g/dL (3.4-5.0); ALKALINE PHOSPHATASE 54 U/L (46-116); ASPARTATE AMINOTRANSFERASE 13 U/L (15-37); BILIRUBIN,TOTAL 0.5 mg/dL (0.1-1.0); TOTAL PROTEIN, SERUM 6.7 g/dL (6.4-8.2)
[2020-11-23] MEDS ORDERED: POTASSIUM CHLORIDE 20 MEQ ER TABLET PO ONE (02:45)
[2020-11-23] MEDS ORDERED: HALOPERIDOL 5 MG TABLET PO ONE (03:45)
[2020-11-23] MEDS ORDERED: DiphenhydrAMINE HCL 25 MG CAPSULE PO ONE (03:45)
[2020-11-23] MEDS ORDERED: LORazepam 1 MG TABLET PO ONE (03:45)
[2020-11-23 04:01] LABS: AMPHET/METH SCREEN,URINE NEGATIVE (NEGATIVE); BARBITURATE SCREEN, URINE NEGATIVE (NEGATIVE); BENZODIAZEPINES SCREEN,URINE NEGATIVE (NEGATIVE); CANNABINOID SCREEN,URINE POSITIVE (NEGATIVE); COCAINE SCREEN,URINE NEGATIVE (NEGATIVE); METHADONE SCREEN, URINE NEGATIVE (NEGATIVE); OPIATE SCREEN,URINE NEGATIVE (NEGATIVE)
[2020-11-23 04:03] LABS: PHENCYCLIDINE SCREEN,URINE NEGATIVE (NEGATIVE)
[2020-11-23 04:04] LABS: APPEARANCE,URINE CLEAR (CLEAR); BILIRUBIN,URINE NEGATIVE (NEGATIVE); GLUCOSE, URINE (UA) >=1000 mg/dL (NEGATIVE); KETONES,URINE 15 mg/dL (NEGATIVE); LEUKOCYTE ESTERASE ,URINE NEGATIVE (NEGATIVE); NITRATE,URINE NEGATIVE (NEGATIVE); OCCULT BLOOD,URINE TRACE (NEGATIVE); PROTEIN,URINE NEGATIVE (NEGATIVE); UROBILINOGEN,URINE 0.2 mg/dL (<=1.0)
[2020-11-23 04:21] LABS: BACTERIA,URINE Few /HPF (None Seen); CALCIUM OXALATE CRYSTALS,UR Many /LPF (None Seen); MUCUS,URINE Few LPF (None Seen); WBC,URINE 0-2 /HPF (0-5)
[2020-11-23 04:35] VITALS: BP 142/76
== END 2020-11-23 04:45 | disposition home or self-care (01) ==
LOC: EMS 00:39
DX: F31.9 Bipolar disorder, unspecified (principal); E11.9 Type 2 diabetes mellitus without complications; I10 Essential (primary) hypertension; F17.210 Nicotine dependence, cigarettes, uncomplicated; F12.90 Cannabis use, unspecified, uncomplicated
CPT/HCPCS: 51701; 80053; 81001; 82962; 84484; 85025; 93005; 99285